=== PATIENT | female | born 1990 | race Caucasian/White ===

== ENCOUNTER 2017-04-03 09:46 | Emergency (ER) | payer SELFPAY ==
[~2017-04-03] VITALS: Ht 154.9 cm; Wt 65.5 kg
[~2017-04-03 09:46] MED LIST: ERYTHROMYC1 APPLICAT LEFT EYE; Motrin
[2017-04-03 13:40] LABS: ADD MIUA? YES; BILIRUBIN NEGATIVE; BLOOD MODERATE; COLOR YELLOW ((YELLOW)); GLUCOSE (STRIP) NEGATIVE; KETONES NEGATIVE; LEUKOCYTES MODERATE; NITRITE NEGATIVE; PROTEIN (STRIP) NEGATIVE; SPECIFIC GRAVITY 1.011 (1.000-1.030); UROBILINOGEN 0.2 MG/DL (0.2-1.0)
[2017-04-03 13:52] LABS: BACTERIA 1+ /HPF; EPITHELIAL CELLS RARE /HPF; MUCUS NONE SEEN /LPF; RED BLOOD CELLS 0-5 /HPF (0-5); WHITE BLOOD CELLS 0-5 /HPF (0-5)
[2017-04-03] MEDS ORDERED: ATARAX,VISTARIL25 MG PO (13:57)
[2017-04-03] MEDS ORDERED: MICROZIDE12.5 M1 PO (13:59)
[2017-04-03] MEDS ORDERED: HYDROCHLOROTH12.5 M3 PO (13:59)
[2017-04-03 15:27] LABS: HEMATOCRIT 42.8 % (36.0-46.0); MCH 29.3 PG (29.0-34.0); MCHC 33.6 G/DL (30.0-36.0); MEAN PLAT.VOLUME 9.8 uM^3 (9.5-12.4); PLATELET COUNT 304 K/uL (156-360); RBC DIS.WIDTH-SD 38.5 % (39-53); RED BLOOD COUNT 4.92 M/uL (3.80-5.20); WHITE BLOOD COUNT 9.5 K/uL (4.1-10.2)
[2017-04-03 15:39] LABS: CHLORIDE 104 mEq/L (99-109); POTASSIUM 4.1 mEq/L (3.7-5.4); SODIUM 137 mEq/L (136-147)
[2017-04-03 15:42] LABS: GLUCOSE 90 mg/dL (70-99)
[2017-04-03 15:43] LABS: ANION GAP 9 MEQ/L (2-14)
[2017-04-03 15:44] LABS: TOTAL BILIRUBIN 0.3 mg/dL (0.0-1.0)
[2017-04-03 15:45] LABS: ALKALINE PHOSPHATASE 58 IU/L (3-129); GFR ESTIMATE (CALCULATED) > 59 mL/min/
[2017-04-03 15:46] LABS: UREA NITROGEN (BUN) 10 mg/dL (9-23)
[2017-04-03 16:00] LABS: QUANTITATIVE HCG < 4.0 MIU/ML
[2017-04-03] MEDS ORDERED: KEFLEX500 MG PO (16:03)
[2017-04-03] MEDS ORDERED: ACID CONTROL150 MG PO (16:10)
[2017-04-03 16:36] VITALS: BP 144/98
== END 2017-04-03 16:32 | disposition home or self-care (01) ==
LOC: EME 09:46
PROVIDERS: Nurse Practitioner Family
DX: I10 Essential (primary) hypertension (principal); L50.9 Urticaria, unspecified; N39.0 Urinary tract infection, site not specified; Z82.49 Family history of ischemic heart disease and other diseases of the circulatory system; F17.200 Nicotine dependence, unspecified, uncomplicated
CPT/HCPCS: 80053; 81003; 84702; 85027; 93005; 99281; 99283